=== PATIENT | female | born 1965 | race Caucasian/White ===

== ENCOUNTER → 2016-10-06 | Outpatient (CLI) | payer BC ==
[2016-10-06 07:55] LABS: CH 30.5; CHCM 33.8; HCT 44.3 % (34.0-46.0); HDW 2.66; HGB 14.6 gm/dL (11.4-16.0); MCH 29.9 pg (25.0-35.0); MCHC 32.9 g/dL (31.0-37.0); MCV 90.7 fL (80.0-100.0); RBC 4.88 m/uL (3.80-5.40); RDW 12.7 % (11.5-15.5); WBC 9.2 k/uL (3.8-10.6)
[2016-10-06 08:24] LABS: Anion Gap 10 mmol/L; Blood Urea Nitrogen 20 mg/dL (7-17); Calcium 9.1 mg/dL (8.4-10.2); Carbon Dioxide 26 mmol/L (22-30); Chloride 106 mmol/L (98-107); Glucose 105 mg/dL (74-99); Non-African American GFR(MDRD) >60 (>60 ml/min/1.73 sqM); Potassium 4.8 mmol/L (3.5-5.1); Sodium 142 mmol/L (137-145)
== END | disposition home or self-care (01) ==
LOC: LABWHC1 07:20
PROVIDERS: ATTEND Internal Medicine Clinical Cardiac Electrophysiology
DX: I48.3 Typical atrial flutter (principal)
CPT/HCPCS: 36415; 80048; 85027

== ENCOUNTER → 2016-12-07 | Outpatient (CLI) | payer BC ==
[2016-12-07 07:57] LABS: Anion Gap 10 mmol/L; Blood Urea Nitrogen 24 mg/dL (7-17); Calcium 9.3 mg/dL (8.4-10.2); Carbon Dioxide 27 mmol/L (22-30); Chloride 105 mmol/L (98-107); Glucose 101 mg/dL (74-99); Non-African American GFR(MDRD) >60 (>60 ml/min/1.73 sqM); Potassium 4.8 mmol/L (3.5-5.1); Sodium 142 mmol/L (137-145)
[2016-12-07 07:58] LABS: CH 30.7; CHCM 34.6; HCT 39.1 % (34.0-46.0); HDW 2.63; HGB 13.7 gm/dL (11.4-16.0); MCH 31.2 pg (25.0-35.0); MCHC 35.1 g/dL (31.0-37.0); Mean Platelet Volume 8.4; RDW 12.7 % (11.5-15.5); WBC 8.4 k/uL (3.8-10.6)
== END | disposition home or self-care (01) ==
LOC: LABWHC1 07:02
PROVIDERS: ATTEND Internal Medicine Clinical Cardiac Electrophysiology
DX: I10 Essential (primary) hypertension (principal); I42.0 Dilated cardiomyopathy; I48.0 Paroxysmal atrial fibrillation; I49.3 Ventricular premature depolarization
CPT/HCPCS: 36415; 80048; 85027

== ENCOUNTER 2016-12-14 05:51 | Day surgery (SDC) | payer BC ==
[2016-12-12 13:50] VITALS: BMI 41.5
[2016-12-14] MEDS ORDERED: LACTATED RINGERS 1,000 ML IV SCH (06:17)
[2016-12-14] MEDS: SODIUM CHLORIDE 0.9% 1,000 ML IV SCH ×2 (06:57→21:53)
[2016-12-14] MEDS ORDERED: ISOPROTERENOL 250 MCG/1.25 ML SYR IV ONE (07:25)
[2016-12-14] MEDS ORDERED: ePHEDrine 50 MG/ML 1 ML AMP ONE (07:25)
[2016-12-14] MEDS ORDERED: GLYCOPYRROLATE 0.2 MG/ML 2 ML VIAL ONE (07:25)
[2016-12-14] MEDS ORDERED: HEPARIN SODIUM,PORCINE 10,000 UNIT/ML 1 ML VIAL ONE (07:25)
[2016-12-14] MEDS ORDERED: HEPARIN SODIUM 1,000 UNIT/ML VIAL ONE (07:25)
[2016-12-14] MEDS ORDERED: FUROSEMIDE 10 MG/ML 2 ML VIAL ONE (07:25)
[2016-12-14] MEDS ORDERED: MIDAZOLAM 2 MG/2 ML VIAL ONE (07:25)
[2016-12-14] MEDS ORDERED: DEXAMETHASONE SOD PHOS (MDV) 100 MG/10 ML VIAL ONE (07:25)
[2016-12-14] MEDS ORDERED: ONDANSETRON 4 MG/2 ML VIAL ONE (07:25)
[2016-12-14] MEDS ORDERED: NEOSTIGMINE 1 MG/ML 10 ML VIAL ONE (07:25)
[2016-12-14] MEDS ORDERED: fentaNYL (PF) 50 MCG/ML 2 ML AMP ONE (07:25)
[2016-12-14] MEDS ORDERED: LIDOCAINE 1% INJ 10MG/ML (20 ML MDV) ONE (07:25)
[2016-12-14] MEDS ORDERED: VECURONIUM 10 MG VIAL IV ONE (07:25)
[2016-12-14] MEDS ORDERED: SUCCINYLCHOLINE CHLORIDE 100 MG/5 ML SYR IV ONE (07:25)
[2016-12-14] MEDS ORDERED: PROPOFOL 10 MG/ML 20 ML VIAL IV ONE (07:25)
[2016-12-14] MEDS ORDERED: PROTAMINE SULFATE 10 MG/ML 5 ML VIAL IV ONE (07:25)
[2016-12-14] MEDS ORDERED: ATROPINE SULFATE 0.1 MG/ML 10ML SYRINGE ONE (07:25)
[2016-12-14] MEDS ORDERED: LIDOCAINE 2% INJ 20 MG/ML SQ ONE (08:06)
[2016-12-14] MEDS ORDERED: HEPARIN SODIUM (1,000 UNIT/ML) 1,000 UNIT in SODIUM CHLORIDE 0.9% 1,000 ML IRRIGATION ONE ×2 (08:16→11:26)
[2016-12-14] MEDS ORDERED: HEPARIN SODIUM,PORCINE/D5W PMX 25,000 UNIT in DEXTROSE/WATER 1 500ML.BAG IV ONE (08:30)
[2016-12-14] MEDS ORDERED: LACTATED RINGERS 1,000 ML IV ONE (11:32)
[2016-12-14] MEDS ORDERED: ASPIRIN-ACET-CAFF 250-250-65MG 1 EACH TAB PO PRN (14:10)
[2016-12-14] MEDS ORDERED: ACETAMINOPHEN IV (For NPO) 1,000 MG in EMPTY BAG 1 BAG IVPB ONE (14:14)
--- NOTE | 2016-12-14 15:48 | PCN ---
DATE OF PROCEDURE: Viola Elizabeth is a 51-year-old female with paroxysmal atrial fibrillation with RVR who developed cardiomyopathy during atrial fibrillation. She has failed flecainide. She was brought in for atrial fibrillation ablation with pulmonary vein isolation. The patient was brought to the EP lab in a fasting state. Written informed consent was obtained prior to the procedure. General anesthesia was provided. Right and left groins were prepped and draped as per protocol. A 5 [place] femoral arterial sheath was placed for hemodynamic monitoring and sampling. Blood pressure remained stable throughout the procedure. Heparin was given and ACT was maintained above 300. At the end of the procedure heparin was reversed. A venous sheath was placed in the right femoral vein and 2 venous sheaths in the left femoral vein. Sinus cycle length 798 ms, IA interval 191 ms, QRS 127 ms, QT 461 ms. Sinus node recovery times at 600 and 500 ms were 1479 and 1648. The corresponding corrected sinus node recovery times were prolonged at a paced cycle length of 500 ms. AV node Wenckebach block from the coronary sinus was 330 ms. Atrial ERP 600/210 ms. Burst stimulation from 400 ms down to 300 ms. Isuprel was used wide open. High right atrial pacing was performed. AV Wenckebach block from the high right atrium was ( ) ms. VA Wenckebach block on Isuprel was greater than 500 ms. The AH interval was 114 ms, HV interval 41 ms. Intracardiac echocardiography was performed. The right atrial septum was identified. The left atrial appendage, left atrium and the pulmonary veins were identified and appropriately tagged. Three-D anatomic mapping was initially performed. Left-to- right transseptal catheterization was performed. The RA pressures were 18/3/8 mmHg and LA pressures 25/9/9 mmHg. A long sheath was placed in the left atrium and mapping and ablation catheters were placed in the left atrium. Three-D mapping of the pulmonary veins was performed. Antral isolation of the pulmonary veins was performed. The esophagus was right-sided and therefore had to be deflected away from the right-sided veins toward the left veins. This was performed under temperature monitoring. There was one area near the right superior pulmonary vein antrum where the temperature was reached ( ) degrees Celsius and RF was terminated. Antral isolation of the pulmonary veins on the left side was performed successfully. Three-D mapping was performed at the end of the procedure and the left veins were completely quiescent. Next the right pulmonary veins were isolated at the antral level. The esophagus was deflected. At the end of the procedure the veins were completely quiescent on voltage mapping as well as with high-voltage pacing. All catheters were then removed. Heparin was reversed at the end of the procedure. Radiographic evaluation of the esophagus was performed. There was no evidence for esophageal perforation, tear or ulceration or staining. Patient tolerated the procedure well without any acute complications. PLAN: Continue all cardiac medications, including flecainide and anticoagulation. Please note that on intracardiac echo the LV function was normal during sinus rhythm.
[2016-12-14] MEDS: ACETAMINOPHEN TAB 325 MG TAB PO PRN (17:55)
[2016-12-14] MEDS: FLECAINIDE 50 MG TAB PO SCH (21:53)
[2016-12-14] MEDS: DOCUSATE 100 MG CAP PO SCH (21:53)
[2016-12-14] MEDS: FLUoxetine HCL 20 MG CAP PO SCH (21:54)
[2016-12-14] MEDS: RIVAROXABAN 10 MG TAB PO SCH (21:54)
[2016-12-14] MEDS: HYDROcodone/APAP 5-325MG 1 EACH TAB PO PRN (21:54)
[2016-12-14] MEDS: LISINOPRIL 5 MG TAB PO SCH (21:54)
[2016-12-15] MEDS: HYDROcodone/APAP 5-325MG 1 EACH TAB PO PRN ×3 (03:05→20:20)
--- NOTE | 2016-12-15 08:07 | P.PN ---
Progress Note - Text Patient is complaining of sore throat. No pleuritic chest discomfort no dizziness lightheadedness no breathing trouble Temperature 97.5, pulse rate in the 80s, normal respirations, blood pressure 112 /58 mmHg Normal heart sounds normal S1 normal S2 no murmurs no gallops Breath sounds are normal no rhonchi no crackles Abdomen soft nontender Extremities warm no edema No hematoma over the groins right groin is tender but without hematoma Impression Paroxysmal atrial fibrillation, very symptomatic failed flecainide frequent PVCs History of cardio myopathy, improved Plan Observe on telemetry. I'm late in the hallways. She underwent an A. fib ablation procedure under general anesthesia for greater than 5 hours There was a rise in esophageal temperature by 1.1C been ablating close to the right superior pulmonary vein posteriorly I will consider CT of the chest with contrast before she is discharged All home medications will continue unchanged for now including anticoagulation
[2016-12-15] MEDS: DOCUSATE 100 MG CAP PO SCH ×2 (08:09→20:16)
[2016-12-15] MEDS: METOPROLOL SUCCINATE (ER) 100 MG TAB.ER.24H PO SCH (08:09)
[2016-12-15] MEDS: FLECAINIDE 50 MG TAB PO SCH ×2 (08:09→20:16)
[2016-12-15] MEDS: SPIRONOLACTONE 25 MG TAB PO SCH (08:09)
[2016-12-15] MEDS: SODIUM CHLORIDE 0.9% 1,000 ML IV SCH (11:20)
[2016-12-15] MEDS: ACETAMINOPHEN TAB 325 MG TAB PO PRN (15:09)
[2016-12-15] MEDS: RIVAROXABAN 10 MG TAB PO SCH (17:19)
[2016-12-15] MEDS: FLUoxetine HCL 20 MG CAP PO SCH (20:16)
[2016-12-15] MEDS: LISINOPRIL 5 MG TAB PO SCH (20:16)
[2016-12-16 03:13] LABS: Basophils % (A) 0 %; CH 30.8; CHCM 34.4; Eosinophils # (A) 0.2 k/uL (0-0.7); Eosinophils % (A) 1 %; HCT 35.3 % (34.0-46.0); HDW 2.49; HGB 12.2 gm/dL (11.4-16.0); Luc # (Auto) 0.15; Luc % (Auto) 1; Lymphocytes # (A) 1.8 k/uL (1.0-4.8); Lymphocytes % (A) 10 %; MCHC 34.4 g/dL (31.0-37.0); MCV 89.9 fL (80.0-100.0); Mean Platelet Volume 7.5; Monocytes # (A) 0.6 k/uL (0-1.0); Monocytes % (A) 4 %; Neutrophils # (A) 14.4 k/uL (1.3-7.7); Neutrophils % (A) 84 %; RBC 3.93 m/uL (3.80-5.40); RDW 12.9 % (11.5-15.5); WBC 17.1 k/uL (3.8-10.6); WBC (Perox) 18.72
[2016-12-16 03:38] LABS: Anion Gap 9 mmol/L; Blood Urea Nitrogen 18 mg/dL (7-17); Calcium 8.7 mg/dL (8.4-10.2); Carbon Dioxide 26 mmol/L (22-30); Chloride 102 mmol/L (98-107); Glucose 115 mg/dL (74-99); Magnesium 2.1 mg/dL (1.6-2.3); Non-African American GFR(MDRD) >60 (>60 ml/min/1.73 sqM); Potassium 4.3 mmol/L (3.5-5.1); Sodium 137 mmol/L (137-145)
[2016-12-16] MEDS: METOPROLOL SUCCINATE (ER) 100 MG TAB.ER.24H PO SCH (08:08)
[2016-12-16] MEDS ORDERED: FLUoxetine HCL 20 MG CAP ONE (08:08)
[2016-12-16] MEDS: SPIRONOLACTONE 25 MG TAB PO SCH (08:08)
[2016-12-16] MEDS ORDERED: FLECAINIDE 50 MG TAB ONE ×2 (08:08)
[2016-12-16] MEDS ORDERED: FLUTICASONE 50MCG/SPRAY NASAL 16GM ONE (08:08)
[2016-12-16] MEDS: FLECAINIDE 50 MG TAB PO SCH ×2 (08:08→20:52)
[2016-12-16] MEDS ORDERED: METOPROLOL SUCCINATE (ER) 100 MG TAB.ER.24H PO ONE (08:08)
[2016-12-16] MEDS ORDERED: DOCUSATE 100 MG CAP ONE ×2 (08:08)
[2016-12-16] MEDS: DOCUSATE 100 MG CAP PO SCH ×2 (08:08→20:53)
[2016-12-16] MEDS ORDERED: LISINOPRIL 5 MG TAB ONE (08:08)
[2016-12-16] MEDS ORDERED: RIVAROXABAN 10 MG TAB PO ONE (08:08)
[2016-12-16] MEDS ORDERED: SPIRONOLACTONE 25 MG TAB ONE (08:08)
[2016-12-16] MEDS ORDERED: RX INFO: IV CONTRAST WAS GIVEN 1 EACH MISC MISCELLANE PRN (08:59)
--- NOTE | 2016-12-16 11:03 | P.DS ---
Providers Attending physician: Gage Hester Primary care physician: Flavio Durant [facility] Course: patient is lying comfortably in bed. She denies any chest discomfort she does have difficulty with swallowing but she does not have any chest discomfort or pleuritic chest discomfort. She does get little dizzy when she sits up in bed no palpitations rhythm has been normal Labs are reviewed today white count is 17,000 electrolytes are normal glucose 115 neutrophil count is She is afebrile 97.5F respirations are normal blood pressure 120/66 mmHg Heart sounds S1 and S2 are normal no murmurs or gallops no rubs Breath sounds bilateral crackles at both bases Abdomen soft nontender Groins have healed well no hematoma Peripheral pulses are well palpable Impression Paroxysmal atrial fibrillation, symptomatic A. fib related cardio-myopathy PVCs Swallowing difficulty, elevated white count postprocedure after A. fib ablation Plan CT of the chest with contrast. If there are no mediastinal problems such as mediastinal air she'll be discharged home today She will continue all her medications including anticoagulation Follow-up in one week Patient Condition at Discharge: Stable Plan - Discharge Summary Discharge Medication List FLUoxetine HCL [PROzac] 20 mg PO HS 09/14/14 [History] Levalbuterol Hfa Inhaler [Xopenex Hfa Inhaler] 2 puff INHALATION QID PRN [History] Levalbuterol Nebulized [Xopenex Nebulized] 1 applic INHALATION QID PRN 09/14/14 [History] Lisinopril [Zestril] 5 mg PO HS 09/14/14 [History] Spironolactone [Aldactone] 12.5 mg PO DAILY 09/14/14 [History] Aspirin/Acetaminophen/Caffeine [Excedrin Migraine Caplet] 1 each PO DAILY PRN [History] Flecainide Acetate [Tambocor] 50 mg PO BID 08/17/16 [History] Metoprolol Succinate [Toprol XL] 100 mg PO DAILY 08/17/16 [History] Rivaroxaban [Xarelto] 25 mg PO PC-SUPPER 08/17/16 [History] Multivitamins, Thera [Multivitamin] 1 tab PO DAILY 12/12/16 [History]
--- NOTE | 2016-12-16 11:21 | CT ---
EXAMINATION TYPE: CT chest w con DATE OF EXAM: 12/16/2016 11:08 AM COMPARISON: NONE HISTORY: Atrial fibrillation and Aflutter. History of cardiac ablation performed December 14 CT DLP: 448.40 mGycm. Automated Exposure Control for Dose Reduction was Utilized. TECHNIQUE: CT scan of the thorax is performed following with IV Contrast, patient injected with 100 ml mL of Omnipaque 350. FINDINGS: LUNGS: There are tiny bilateral pleural effusions inferiorly. There is associated compressive atelect asis and/or consolidation posteriorly in both lung bases. There is additional linear atelectasis cent rally. No pneumothorax is seen bilaterally. Upper lungs are clear The tracheobronchial tree is patent . MEDIASTINUM: There are no greater than 1 cm hilar or mediastinal lymph nodes. There is tiny pericardi al effusion seen posteriorly near axial image 38 for reference. There is cardiomegaly present. Some m ediastinal fluid near level of ascending aorta is suggestive of hematoma measuring roughly 3.4 x 2.2 cm at this level. OTHER: Mild multilevel spurring in thoracic spine is present. There are dependent gallstones in gallb ladder partially imaged. IMPRESSION: Some high dense fluid at level of ascending aorta and the mediastinum is nonspecific, hem atoma at this level needs to BE considered as possible etiology.
--- NOTE | 2016-12-16 13:03 | PN ---
INTERVAL HISTORY: The patient is sitting up in chair. Denying chest pain, shortness breath, nausea, vomiting, abdominal pain, dizziness, lightheadedness, or blurry vision. Feels some improvement since admission but not quite back at her baseline. PHYSICAL EXAMINATION: VITAL SIGNS: 97.9, 94, 18, 125/69, saturation is 98% on room air. LUNGS: Diminished bilaterally. HEART: Normal S1, S2. ABDOMEN: Soft, no tenderness, positive bowel sounds in all 4 quadrants. SKIN: No new rash. PSYCH: Alert and oriented x3. IMAGING AND LABS: Hemoglobin is 8.6, stable from prior finding. Stable CBC otherwise. Creatinine is 3.5, which is baseline for the patient, 2.9. Glucose fluctuating between 109 and 180. ASSESSMENT AND PLAN: 1. Acute kidney injury on chronic kidney disease. The patient is still producing generous amount of urine. Currently on Lasix 40 mg twice daily. Discussed with Nephrology. At this point we will continue sodium bicarb and repeat her blood work in the morning. 2. Acute combined systolic and diastolic heart failure. Will continue cardioprotective medication. We will continue monitoring closely. Cardiology is following up on the patient and would like to consider cardiac catheterization but kidney function is elevated and the patient is not a candidate at this point and may benefit from that on outpatient basis after optimizing her kidney function and discussion with the Nephrology. 3. Coronary artery disease. We will continue cardioprotective medication as above. 4. Anemia, stable and we will continue periodic monitoring. 5. Obesity, stable. 6. History of osteomyelitis. Infectious disease evaluated the patient. 7. Debility. Will have PT, OT evaluate the patient. 8. Prognosis is guarded.
--- NOTE | 2016-12-16 13:23 | P.PN ---
Progress Note - Text Reviewed CT films with Dr. Alcantara The fluid collection/soft tissue density that is described is anterior to the ascending aorta which is very distant from the left atrium as well as the esophagus The patient underwent a left atrial ablation and esophageal deflection, mechanically There is no hematoma or air in the mediastinum This could represent a pericardial extension or recess Suggest We will keep her in the hospital for another day, check her CBC tomorrow, incentive spirometer since she has bilateral basilar atelectasis and consider repeating the CT, noncontrast in a week or 2 She has had an MRI done at the [facility] and I will call them to see if this was present at that time
[2016-12-16] MEDS: RIVAROXABAN 10 MG TAB PO SCH (17:16)
[2016-12-16] MEDS ORDERED: diphenhydrAMINE 50 MG/ML 1 ML VIAL IVP PRN (18:06)
[2016-12-16] MEDS ORDERED: ALBUTEROL NEBULIZED 2.5 MG/3 ML INHALATION PRN (18:07)
[2016-12-16] MEDS: FLUTICASONE 50MCG/SPRAY NASAL 16GM EA NOSTRIL SCH (18:27)
[2016-12-16] MEDS: SODIUM CHLORIDE 0.9% 1,000 ML IV SCH (20:03)
[2016-12-16] MEDS: FLUoxetine HCL 20 MG CAP PO SCH (20:52)
[2016-12-16] MEDS: LISINOPRIL 5 MG TAB PO SCH (20:53)
[2016-12-17 06:57] LABS: Basophils % (A) 0 %; CH 30.4; CHCM 33.5; Eosinophils # (A) 0.2 k/uL (0-0.7); Eosinophils % (A) 1 %; HCT 36.6 % (34.0-46.0); HDW 2.47; HGB 12.2 gm/dL (11.4-16.0); Luc % (Auto) 2; Lymphocytes # (A) 3.6 k/uL (1.0-4.8); Lymphocytes % (A) 30 %; MCH 30.5 pg (25.0-35.0); MCHC 33.4 g/dL (31.0-37.0); MCV 91.3 fL (80.0-100.0); Mean Platelet Volume 7.5; Monocytes # (A) 0.7 k/uL (0-1.0); Monocytes % (A) 6 %; Neutrophils # (A) 7.3 k/uL (1.3-7.7); Neutrophils % (A) 61 %; RBC 4.01 m/uL (3.80-5.40); WBC 12.1 k/uL (3.8-10.6); WBC (Perox) 12.97
[2016-12-17] MEDS: ACETAMINOPHEN TAB 325 MG TAB PO PRN (07:34)
[2016-12-17 08:27] VITALS: BP 124/70; PULSE 63; RESP 16; TEMP 97.8
[2016-12-17] MEDS: DOCUSATE 100 MG CAP PO SCH (08:28)
[2016-12-17] MEDS: METOPROLOL SUCCINATE (ER) 100 MG TAB.ER.24H PO SCH (08:28)
[2016-12-17] MEDS: FLUTICASONE 50MCG/SPRAY NASAL 16GM EA NOSTRIL SCH (08:28)
[2016-12-17] MEDS: FLECAINIDE 50 MG TAB PO SCH (08:28)
[2016-12-17] MEDS ORDERED: LORATADINE 10 MG TAB PO SCH (09:00)
--- NOTE | 2016-12-17 10:17 | P.DS ---
Providers Attending physician: Gage Hester [facility] Course: Patient is doing well. She has no chest discomfort no undue shortness of breath no dizziness lightheadedness or palpitations. Yesterday some hernandez were brought to the room by her neighbor and she developed a nasal ALLERGIC reaction. She is ALLERGIC to pollen. She is not improved and has no problems Labs are reviewed white count is down to 12.1 thousand hemoglobin is stable at 12.2 Vitals are stable she's afebrile 97.8F, pulse rate in the 60s, normal respirations, blood pressure 124/70 mmHg Breath sounds are normal no rhonchi no crackles Heart sounds are normal normal S1 normal S2 Abdomen soft nontender Groins have healed well bilaterally no hematoma Extremities are warm no edema Impression Paroxysmal atrial fibrillation with RVR with associated cardiomyopathy Improvement in LV function with sinus rhythm documented by intracardiac echo PVCs status post ablation in the past Continues to have PVCs of a different morphology The computed tomography scan yesterday showed a soft tissue density anterior to the ascending aorta. I spoke to the radiologist and while his initial opinion was a hematoma, it is more likely to be an incidental finding with probably a pericardial reflection/pouch with some fluid collection. This density is anterior and superior to the ascending aorta and quite remote from the area with the performed the ablations. I will review her MRI report and call the radiologist regarding the examination of the MRI slices for comparison Hold off on any CT imaging for now Follow-up within a week Discussed with patient and her Patient Condition at Discharge: Stable Plan - Discharge Summary Discharge Medication List FLUoxetine HCL [PROzac] 20 mg PO HS 09/14/14 [History] Levalbuterol Hfa Inhaler [Xopenex Hfa Inhaler] 2 puff INHALATION QID PRN [History] Levalbuterol Nebulized [Xopenex Nebulized] 1 applic INHALATION QID PRN 09/14/14 [History] Lisinopril [Zestril] 5 mg PO HS 09/14/14 [History] Spironolactone [Aldactone] 12.5 mg PO DAILY 09/14/14 [History] Aspirin/Acetaminophen/Caffeine [Excedrin Migraine Caplet] 1 each PO DAILY PRN [History] Flecainide Acetate [Tambocor] 50 mg PO BID 08/17/16 [History] Metoprolol Succinate [Toprol XL] 100 mg PO DAILY 08/17/16 [History] Rivaroxaban [Xarelto] 25 mg PO PC-SUPPER 08/17/16 [History] Multivitamins, Thera [Multivitamin] 1 tab PO DAILY 12/12/16 [History] Fluticasone Nasal [place] [Flonase Nasal [place]] 1 spray EA NOSTRIL DAILY 12/16/16 [History] Follow up Appointment(s)/Referral(s): Gage Hester MD [STAFF PHYSICIAN] - 12/25/16 3:00 pm Patient Instructions/Handouts: Cardiac Ablation (DC)
== END 2016-12-17 10:36 | disposition home or self-care (01) ==
LOC: CATHEP 05:51 → 6SEL 17:57 → CATHEP 12-17 10:36
PROVIDERS: ATTEND Internal Medicine Clinical Cardiac Electrophysiology
DX: I48.0 Paroxysmal atrial fibrillation (principal); I42.9 Cardiomyopathy, unspecified; I49.3 Ventricular premature depolarization; D72.829 Elevated white blood cell count, unspecified; J98.59 Other diseases of mediastinum, not elsewhere classified; I11.0 Hypertensive heart disease with heart failure; I50.9 Heart failure, unspecified; I49.5 Sick sinus syndrome; Z79.899 Other long term (current) drug therapy; Z79.1 Long term (current) use of non-steroidal anti-inflammatories (NSAID); Z88.1 Allergy status to other antibiotic agents
CPT/HCPCS: 85347; 93623; 93662; 93613; 93656; 80048; 83735; 85025 ×2; C1894 ×2; C1769 ×4; C1730; C1893; C1759; C1732; J2001 ×2; J2250; J2720; J1644 ×3; J1940; J2710; J2405; J0461; J3010; J1100; J0131; J0330; J2704

== ENCOUNTER → 2017-07-03 | Outpatient (CLI) | payer BC ==
--- NOTE | 2017-07-03 08:56 | CT ---
EXAMINATION TYPE: CT chest w con DATE OF EXAM: 07/03/2017 COMPARISON: CT chest December 16, 2016. HISTORY: abn space associated with ascending aorta/anterior mediastinum per order. Prior abnormal CT. CT DLP: 797.0 mGycm. Automated Exposure Control for Dose Reduction was Utilized. TECHNIQUE: CT scan of the thorax is performed following with IV Contrast, patient injected with 100 mL of Omnipaque 300. FINDINGS: LUNGS: The lungs are grossly clear on current study, there is no concerning noncalcified parenchymal mass or nodule identified. There is no pleural effusion or pneumothorax seen. The tracheobronchial tree is patent. There are persistent calcified right mid lung subcentimeter nodules or granulomas. MEDIASTINUM: There are no greater than 1 cm noncalcified hilar or mediastinal lymph nodes. There is redemonstration of calcified right hilar subcentimeter lymph nodes. There is stable tiny pericardial effusion. There is stable mild cardiomegaly. There is coronary artery calcification which is noted ma rker for coronary artery disease. Focal fluid anterior to aortic root on prior study now is nearly co mpletely resolved. There is new soft tissue density in the anterior superior mediastinum suspicious f or thymic rebound. Small pericardial recess fluid remains present seen best on coronal image 34. OTHER: Dependent calcified gallstones in gallbladder are redemonstrated. Mild multilevel spurring in thoracic spine is again seen. IMPRESSION: Interval resolution of high dense paraaortic fluid collection possible hematoma. Some new thymic rebound is now felt present without obvious suspicious thymic mass.
== END | disposition home or self-care (01) ==
LOC: RADCTMAIN 07:03
PROVIDERS: ATTEND Internal Medicine Clinical Cardiac Electrophysiology
DX: R93.1 Abnormal findings on diagnostic imaging of heart and coronary circulation (principal)
CPT/HCPCS: 71260; Q9967

== ENCOUNTER → 2018-03-13 | Outpatient (CLI) | payer BC ==
--- NOTE | 2018-03-13 07:40 | MR ---
EXAMINATION TYPE: MR knee RT wo con DATE OF EXAM: 03/13/2018 COMPARISON: Outside right knee x-ray February 27, 2018. HISTORY: Right knee pain per order. Pain and swelling for 2 months per patient. TECHNIQUE: Multiplanar, multisequence images of the knee is performed without IV contrast. FINDINGS: MEDIAL MENISCUS: Anterior horn is intact without tear. There is complex full-thickness tear posterior horn of medial meniscus with prominent horizontal but additional oblique component extending to josh cular surface sagittal image 8. LATERAL MENISCUS: Anterior and posterior horns are intact without tear. CRUCIATE LIGAMENTS: The anterior and posterior cruciate ligaments are intact. Increased signal throug hout anterior cruciate ligament is noted. COLLATERAL LIGAMENTS: The medial collateral ligament and lateral collateral ligament complex are inta ct and unremarkable. EXTENSOR MECHANISM: Visualized quadriceps and patellar tendons are intact. EFFUSION: There is small to moderate-sized suprapatellar joint effusion. POPLITEAL CYST: There is small popliteal/renee cyst measuring 3.0 cm long axis sagittal image 12. TRICOMPARTMENT SPACES: There is moderate to advanced joint space loss particularly inferiorly in the patellofemoral compartment with mild spurring. There is more mild to moderate joint space loss and sp urring in the lateral and medial tibiofemoral compartments. CARTILAGE: There is full-thickness chondromalacia patella along the posterior patellar pole. BONE MARROW SIGNAL: There are areas of heterogeneous increased T2 signal along the posterior patellar pole at areas of full-thickness cartilaginous loss.. OTHER: There is marked fluid in the superficial infrapatellar fat. IMPRESSION: 1. Complex full-thickness tear posterior horn of medial meniscus. 2. Tricompartment degenerative changes with moderate to advanced findings patellofemoral compartment, there is high-grade chondromalacia patella noted. 3. Moderate to severe superficial infrapatellar bursitis. 4. Small moderate size suprapatellar joint effusion. 5. Small popliteal cyst. 6. Myxoid degeneration ACL.
== END ==
LOC: RADMRIMAIN 06:46
PROVIDERS: ATTEND Orthopaedic Surgery
DX: S83.241A Other tear of medial meniscus, current injury, right knee, initial encounter (principal); X58.XXXA Exposure to other specified factors, initial encounter; M22.41 Chondromalacia patellae, right knee; M70.51 Other bursitis of knee, right knee; M25.461 Effusion, right knee; M71.21 Synovial cyst of popliteal space [Baker], right knee; M23.8X1 Other internal derangements of right knee

== ENCOUNTER 2019-06-23 19:06 | Emergency (ER) | payer BC ==
[2019-06-23 19:38] LABS: Appearance,Urine Bloody (Clear); Color,Urine Light Red; Mucus,Urine Few /hpf; RBC,Urine >182 /hpf (0-5); Squamous Epithelial Cell,Urine 8 /hpf (0-4); WBC,Urine >182 /hpf (0-5)
[2019-06-23] MEDS ORDERED: PHENAZOPYRIDINE 200 MG TAB PO STA (20:04)
[2019-06-23] MEDS ORDERED: IBUPROFEN 600 MG TAB PO STA (20:04)
[2019-06-23] MEDS ORDERED: cefTRIAXone 1,000 MG VIAL (IM USE) IM STA ×2 (20:04)
[2019-06-23] MEDS ORDERED: ACETAMINOPHEN TAB 500 MG TAB PO STA (20:09)
--- NOTE | 2019-06-23 20:09 | ED ---
General Adult HPI - General Chief complaint: Urogenital Stated complaint: blood & clots in urine Time Seen by Provider: 06/23/19 19:10 Source: patient, RN notes reviewed Mode of arrival: ambulatory Limitations: no limitations - History of Present Illness Initial comments: This is a 53-year-old female presents emergency Department complaining of dysuria hematuria and suprapubic pressure. Patient also complains of urgency. Patient denies any fever. Patient denies any chills per patient denies nausea vomiting diarrhea. Patient denies any vaginal bleeding. Patient denies any back pain. Patient states a urinary tract infections in the past but not to this degree. - Related Data Home Medications Medication Instructions Recorded Confirmed FLUoxetine HCL [PROzac] 20 mg PO HS 09/14/14 08/12/18 Levalbuterol Hfa Inhaler [Xopenex 2 puff INHALATION QID PRN 09/14/14 08/12/18 Hfa Inhaler] Levalbuterol Nebulized [Xopenex 1 applic INHALATION QID PRN 09/14/14 08/12/18 Nebulized] Lisinopril [Zestril] 5 mg PO HS 09/14/14 08/12/18 Spironolactone [Aldactone] 12.5 mg PO DAILY 09/14/14 08/12/18 Aspirin/Acetaminophen/Caffeine 1 each PO DAILY PRN 08/17/16 08/12/18 [Excedrin Migraine Caplet] Flecainide Acetate [Tambocor] 50 mg PO BID 08/17/16 08/12/18 Metoprolol Succinate [Toprol XL] 100 mg PO DAILY 08/17/16 08/12/18 Multivitamins, Thera [Multivitamin] 1 tab PO DAILY 12/12/16 08/12/18 Fluticasone Nasal [place] [Flonase 1 spray EA NOSTRIL DAILY 12/16/16 08/12/18 Nasal [place]] Cetirizine HCl [Zyrtec] 10 mg PO DAILY 08/12/18 08/12/18 Previous Rx's Medication Instructions Recorded HYDROcodone/APAP 7.5-325MG [[place] 1 - 2 each PO Q6HR PRN #20 tab 08/14/18 7.5-325] Phenazopyridine [Pyridium] 200 mg PO TID #9 tablet 06/23/19 Sulfamethox-Tmp 800-160Mg [Bactrim 1 each PO Q12HR #14 tab 06/23/19 DS 800-160 mg] Allergies Allergy/AdvReac Type Severity Reaction Status Date / Time egg Allergy Intermediate Swelling Verified 06/23/19 19:09 erythromycin base Allergy Intermediate Rash/Hives Verified 06/23/19 19:09 adhesive tape Allergy Rash/Hives Verified 06/23/19 19:09 LITTLE Allergy Cough Uncoded 06/23/19 19:09 Cardiac Electrodes AdvReac Unknown Rash/Hives Uncoded 06/23/19 19:09 Review of Systems ROS Statement: Those systems with pertinent positive or pertinent negative responses have been documented in the HPI. ROS Other: All systems not noted in ROS Statement are negative. Past Medical History Past Medical History: Atrial Fibrillation, Asthma, Osteoarthritis (OA) Additional Past Medical History / Comment(s): recent sinus infection and URI tx with antibiotics and steroid injection completed. hx PVC's History of Any Multi-Drug Resistant Organisms: None Reported Past Surgical History: Adenoidectomy, Cardiac Ablation, EPS, Hernia Repair, Tonsillectomy Additional Past Surgical History / Comment(s): Cardiac Ablation x3 for PVC's, 1 for Afib, Cardioversion Past Anesthesia/Blood Transfusion Reactions: No Reported Reaction Past Psychological History: No Psychological Hx Reported Smoking Status: Never smoker Past Alcohol Use History: Occasional Past Drug Use History: None Reported - Past Family History Mother Family Medical History: Cancer Father Family Medical History: AFIB, Coronary Artery Disease (CAD) General Exam - General Exam Comments Initial Comments: GENERAL: Patient is well-developed and well-nourished. Patient is nontoxic and well- hydrated and is in mild distress. ENT: Neck is soft and supple. No significant lymphadenopathy is noted. Oropharynx is clear. Moist mucous membranes. Neck has full range of motion without eliciting any pain. EYES: The sclera were anicteric and conjunctiva were pink and moist. Extraocular movements were intact and pupils were equal round and reactive to light. Eyelids were unremarkable. ABDOMEN: Soft and nontender with normal bowel sounds. SKIN: Skin is clear with no lesions or rashes and otherwise unremarkable. NEUROLOGIC: Patient is alert and oriented x3. Cranial nerves II through XII are grossly intact. Motor and sensory are also intact. Normal speech, volume and content. Symmetrical smile. MUSCULOSKELETAL: Normal extremities with adequate strength and full range of motion. No CVA tenderness LYMPHATICS: No significant lymphadenopathy is noted PSYCHIATRIC: Normal psychiatric evaluation. Limitations: no limitations Course Vital Signs 06/23/19 19:07 Temperature 98.6 F Pulse Rate 73 Respiratory 18 Rate Blood Pressure 146/84 O2 Sat by Pulse 100 Oximetry Medical Decision Making - Medical Decision Making I gave the patient 2 g of Rocephin IM I reminded and Motrin and Tylenol. Patient a bladder scan done that showed less than 100 mL of urine - Lab Data Lab Results 06/23/19 Range/Units 19:07 Urine Color Light Red Urine Appearance Bloody H (Clear) Urine RBC >182 H (0-5) /hpf Urine WBC >182 H (0-5) /hpf Ur Squamous Epith Cells 8 H (0-4) /hpf Urine Mucus Few H (None) /hpf Disposition Clinical Impression: Hemorrhagic cystitis Disposition: HOME SELF-CARE Instructions (If sedation given, give patient instructions): Urinary Tract Infection in Women (ED) Prescriptions: Sulfamethox-Tmp 800-160Mg [Bactrim DS 800-160 mg] 1 each PO Q12HR #14 tab Phenazopyridine [Pyridium] 200 mg PO TID #9 tablet Is patient prescribed a controlled substance at d/c from ED?: No Referrals: Flavio Durant MD [Primary Care Provider] - 1-2 days Time of Disposition: 20:37
[2019-06-23 20:47] VITALS: BP 137/64; PULSE 64; RESP 16
[2019-06-23 20:59] VITALS: TEMP 98
== END 2019-06-23 20:51 | disposition home or self-care (01) ==
LOC: EC 19:06
DX: N30.91 Cystitis, unspecified with hematuria (principal); I48.91 Unspecified atrial fibrillation; J45.909 Unspecified asthma, uncomplicated; Z79.51 Long term (current) use of inhaled steroids; Z79.899 Other long term (current) drug therapy; Z91.012 Allergy to eggs; Z88.1 Allergy status to other antibiotic agents; Z91.048 Other nonmedicinal substance allergy status; Z91.09 Other allergy status, other than to drugs and biological substances; Z98.890 Other specified postprocedural states
CPT/HCPCS: 81001; 87086; 99283; 96372 ×2; J0696; 87077; 87186

== ENCOUNTER → 2019-07-08 | Outpatient (CLI) | payer BC ==
--- NOTE | 2019-07-08 15:05 | XR ---
KUB HISTORY: Abdomen pain Frontal KUB submitted on 2 images No prior 2 calcifications in the right upper quadrant may represent gallstones. There is no evident bowel obst ruction or pneumoperitoneum. Several 2 to 3 mm calcifications in the pelvis may represent phleboliths . Bone mineralization is normal, degenerative disc changes are present in the lumbar spine. Bowel gas may obscure detail within the kidneys. IMPRESSION: Probable cholelithiasis. Indeterminate pelvic calcifications.
== END | disposition home or self-care (01) ==
LOC: RADXRMAIN 12:58
PROVIDERS: ATTEND Internal Medicine
DX: R10.9 Unspecified abdominal pain (principal)
CPT/HCPCS: 74018

== ENCOUNTER → 2019-07-25 | Outpatient (CLI) | payer BC ==
--- NOTE | 2019-07-25 08:12 | US ---
EXAMINATION TYPE: US abdomen complete DATE OF EXAM: 07/25/2019 COMPARISON: CT chest July 03, 2017 CLINICAL HISTORY: K56.3 gall stones. UTI, flank pain EXAM MEASUREMENTS: Liver Length: 14.4 cm Gallbladder Wall: 0.3 cm CBD: 0.3 cm Spleen: 9.4 cm Right Kidney: 11.8 x 4.3 x 5.0 cm Left Kidney: 10.0 x 4.9 x 4.4 cm Pancreas: Tail obscured by overlying bowel gas Liver: appears wnl Gallbladder: 2 stones noted Evidence for sonographic Teran's sign: no CBD: appears wnl Spleen: appears wnl Right Kidney: no evidence of hydronephrosis or mass Left Kidney: no evidence of hydronephrosis or mass Upper IVC: wnl Abd Aorta: bifurcation obscured, visualized portions appear wnl The visualized liver is homogenous. Subcentimeter hypodense lesion in the perihepatic dome axial imag e 52 not clearly seen on ultrasound. The intrahepatic portion of the IVC and visualized abdominal aor ta are within normal limits. There is redemonstration of 2 shadowing mobile gallstones. No surroundi ng fluid is present. Gallbladder wall thickness is 3 mm upper limits of normal. Sonographic Teran si gn negative. Common bile duct is unremarkable. The visualized portions of the pancreas are homogenou s. The spleen is unremarkable. Kidneys are symmetric and free of hydronephrosis. No renal lesions are seen on images saved. IMPRESSION: There are 2 shadowing gallstones redemonstrated without convincing secondary ultrasound e vidence for acute cholecystitis.
== END | disposition home or self-care (01) ==
LOC: RADUSWWP 07:04
PROVIDERS: ATTEND Internal Medicine
DX: K80.20 Calculus of gallbladder without cholecystitis without obstruction (principal)
CPT/HCPCS: 76700

== ENCOUNTER → 2019-08-22 | Outpatient (CLI) | payer BC ==
[2019-08-22 07:50] LABS: Basophils # (A) 0.1 k/uL (0-0.2); Basophils % (A) 1 %; Eosinophils # (A) 0.3 k/uL (0-0.7); Eosinophils % (A) 2 %; HCT 40.9 % (34.0-46.0); HGB 13.7 gm/dL (11.4-16.0); Lymphocytes # (A) 2.5 k/uL (1.0-4.8); Lymphocytes % (A) 22 %; MCH 30.2 pg (25.0-35.0); MCHC 33.6 g/dL (31.0-37.0); MCV 89.9 fL (80.0-100.0); Mean Platelet Volume 6.5; Monocytes # (A) 0.6 k/uL (0-1.0); Monocytes % (A) 5 %; Neutrophils # (A) 7.6 k/uL (1.3-7.7); Neutrophils % (A) 68 %; Platelet Count 298 k/uL (150-450); RBC 4.55 m/uL (3.80-5.40); RDW 12.4 % (11.5-15.5); WBC 11.2 k/uL (3.8-10.6)
[2019-08-22 08:02] LABS: Albumin 4.1 g/dL (3.5-5.0); Calcium 9.3 mg/dL (8.4-10.2); Magnesium 2.2 mg/dL (1.6-2.3); Potassium 4.5 mmol/L (3.5-5.1); Total Protein 7.4 g/dL (6.3-8.2)
[2019-08-22 08:18] LABS: T4, Free (Free Thyroxine) 0.95 ng/dL (0.78-2.19)
[2019-08-22 14:43] LABS: Hemoglobin A1C 5.8 % (4.0-6.0)
--- NOTE | 2019-08-26 08:32 | MM ---
Reason for exam: screening (asymptomatic). Last mammogram was performed 5 years ago. History: Patient is postmenopausal. Physical Findings: A clinical breast exam by your physician is recommended on an annual basis and results should be correlated with mammographic findings. MG 3D Screening Mammo W/Cad Bilateral CC and MLO view(s) were taken. Prior study comparison: August 31, 2014, left breast MG work up mamm w CAD LT. August 20, 2014, bilateral MG screening mammo w CAD. The breast tissue is heterogeneously dense. This may lower the sensitivity of mammography. No significant changes when compared with prior studies. ASSESSMENT: Benign, BI-RAD 2 RECOMMENDATION: Routine screening mammogram of both breasts in 1 year.
== END | disposition home or self-care (01) ==
LOC: RADMAMWWP 06:52
PROVIDERS: ATTEND Internal Medicine
DX: Z12.31 Encounter for screening mammogram for malignant neoplasm of breast (principal); I10 Essential (primary) hypertension; E78.2 Mixed hyperlipidemia
CPT/HCPCS: 77063; 77067; 80053; 80061; 83036; 83735; 84439; 84443; 85025

== ENCOUNTER 2024-10-20 05:36 | Day surgery (SDC) | payer BC ==
[2024-10-20] MEDS: IV FLUID CONTINUATION 1,000 ML IV ONE (06:35)
[2024-10-20] MEDS: SODIUM CHLORIDE 0.9% 1,000 ML IV SCH ×3 (06:35→17:24)
[2024-10-20 07:09] LABS: Basophils % (A) 0 %; Eosinophils # (A) 0.2 k/uL (0-0.7); Eosinophils % (A) 2 %; HCT 38.7 % (34.0-46.0); HGB 13.2 gm/dL (11.4-16.0); Lymphocytes # (A) 2.4 k/uL (1.0-4.8); Lymphocytes % (A) 26 %; MCH 29.9 pg (25.0-35.0); MCHC 34.1 g/dL (31.0-37.0); MCV 87.8 fL (80.0-100.0); Mean Platelet Volume 7.6; Monocytes # (A) 0.6 k/uL (0-1.0); Monocytes % (A) 7 %; Neutrophils # (A) 5.8 k/uL (1.3-7.7); Neutrophils % (A) 63 %; Platelet Count 251 k/uL (150-450); RBC 4.41 m/uL (3.80-5.40); RDW 12.5 % (11.5-15.5); WBC 9.2 k/uL (3.8-10.6)
[2024-10-20 07:24] LABS: ALT 17 U/L (4-34); African American GFR (CKD) >90 (>60 ml/min/1.73 sqM); Albumin 3.9 g/dL (3.5-5.0); Anion Gap 8 mmol/L; Blood Urea Nitrogen 23 mg/dL (7-17); Calcium 8.8 mg/dL (8.4-10.2); Carbon Dioxide 23 mmol/L (22-30); Chloride 104 mmol/L (98-107); Glucose 100 mg/dL (74-99); Non-African American GFR(CKD) 79 (>60 ml/min/1.73 sqM); Sodium 135 mmol/L (137-145); Total Bilirubin 1.1 mg/dL (0.2-1.3); Total Protein 6.8 g/dL (6.3-8.2)
[2024-10-20] MEDS ORDERED: fentaNYL (PF) 50 MCG/ML 2 ML AMP ONE (07:50)
[2024-10-20] MEDS ORDERED: PHENYLEPHRINE 10 MG/ML VIAL ONE (07:50)
[2024-10-20] MEDS ORDERED: MIDAZOLAM 2 MG/2 ML VIAL ONE (07:50)
[2024-10-20] MEDS ORDERED: HEPARIN SODIUM,PORCINE 10,000 UNIT/ML 1 ML VIAL ONE (07:50)
[2024-10-20] MEDS ORDERED: ISOPROTERENOL 250 MCG/1.25 ML SYR IV ONE (07:50)
[2024-10-20] MEDS ORDERED: PROPOFOL 10 MG/ML 20 ML VIAL IV ONE (07:50)
[2024-10-20] MEDS ORDERED: SUCCINYLCHOLINE CHLORIDE 200 MG/10 ML VIAL IV ONE (07:50)
[2024-10-20] MEDS ORDERED: ePHEDrine 50 MG/ML 1 ML VIAL ONE (07:50)
[2024-10-20] MEDS ORDERED: PHENYLEPHRINE-0.9% NACL SYG 1,000 MCG/10 ML SYRINGE ONE (07:50)
[2024-10-20] MEDS ORDERED: HEPARIN SODIUM,PORCINE 5,000 UNIT/ML 1 ML VIAL ONE (07:50)
[2024-10-20] MEDS ORDERED: diphenhydrAMINE 50 MG/ML 1 ML VIAL ONE (07:50)
[2024-10-20] MEDS ORDERED: LIDOCAINE 1% INJ 10MG/ML (20 ML MDV) ONE (07:50)
[2024-10-20] MEDS ORDERED: ONDANSETRON 4 MG/2 ML VIAL ONE (07:50)
[2024-10-20 07:55] LABS: AST 25 U/L (14-36); Alkaline Phosphatase 62 U/L (38-126); Potassium 4.4 mmol/L (3.5-5.1)
[2024-10-20] MEDS: LIDOCAINE 1% INJ 10MG/ML (20 ML MDV) SQ ONE (08:32)
[2024-10-20] MEDS: HEPARIN SODIUM,PORCINE 10,000 UNIT in SODIUM CHLORIDE 0.9% 1,000 ML IRRIGATION ONE (08:38)
[2024-10-20] MEDS: HEPARIN SOD,PORK IN 0.45% NACL 25,000 UNIT in 0.45% NACL 1 250ML.BAG IV ONE (08:38)
[2024-10-20] MEDS: IOPAMIDOL-370 100ML BTL INJ ONE (10:25)
[2024-10-20] MEDS ORDERED: ASPIRIN-ACET-CAFF 250-250-65MG 1 EACH TAB PO PRN (11:12)
--- NOTE | 2024-10-20 11:29 | P.HPCAR ---
History of Present Illness This is Dr. Hester dictating an H/P on this patient The patient was interviewed and examined IMPRESSION / ASSESSMENT: Paroxysmal atrial fibrillation, sustained, symptomatic, associated palpitations and dizziness Failed flecainide Prior ablation almost 7 years back Increased BMI Sudden long pause of greater than 7 seconds during the daytime in the wakeful state PLAN: Redo A-fib ablation with linear ablation and assessment of pulmonary veins Heparin dose calculated Continue Eliquis but reduce the dose of flecainide to 50 mg twice daily and metoprolol XL 25 mg p.o. daily post ablation Implantation of loop monitor during this admission to monitor for any sudden bradycardia Gradually taper off beta-blockers and flecainide HPI Patient had a sustained episode of atrial fibrillation for the very first time In addition we have also documented a long sinus pause of 7 seconds during the daytime She was brought in for an A-fib ablation, redo following which her AV leander blocking drugs and antiarrhythmic drugs would be reduced since she had the sinus arrest episode She denies any fever chills She had a presyncopal spell in association with this pause but none thereafter ROS: No fever chills or rigors, no cough, phlegm or expectoration, no nausea, vomiting or diarrhea, no hematuria, dysuria, no musculoskeletal complaints, no strokes or seizures, no skin lesions. 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 hx PVC's History of Any Multi-Drug Resistant Organisms: None Reported Past Surgical History: Adenoidectomy, Cardiac Ablation, EPS, Hernia Repair, Tonsillectomy Additional Past Surgical History / Comment(s): Cardiac Ablation x3 for PVC's, 1 for Afib, Cardioversion Past Anesthesia/Blood Transfusion Reactions: No Reported Reaction Smoking Status: Never smoker - Past Family History Mother Family Medical History: Cancer Father Family Medical History: AFIB, Coronary Artery Disease (CAD) Physical Examination Vital Signs Temp Pulse Resp BP Pulse Ox 10/20/24 11:15 81 15 141/65 100 10/20/24 11:00 97.3 F L 81 14 144/65 98 10/20/24 06:50 97.8 F 55 L 16 126/58 99 Intake and Output 10/19/24 10/20/24 10/20/24 22:59 06:59 14:59 Intake Total 400 235 Balance 400 235 Intake: IV 400 235 Other: # Voids 1 Weight 105.3 kg Results 10/20/24 06:37 10/20/24 06:37 Cardiac Enzymes 10/20/24 Range/Units 06:37 AST 25 (14-36) U/L CBC 10/20/24 Range/Units 06:37 WBC 9.2 (3.8-10.6) k/uL RBC 4.41 (3.80-5.40) m/uL Hgb 13.2 (11.4-16.0) gm/dL Hct 38.7 (34.0-46.0) % Plt Count 251 (150-450) k/uL Comprehensive Metabolic Panel 10/20/24 Range/Units 06:37 Sodium 135 L (137-145) mmol/L Potassium 4.4 (3.5-5.1) mmol/L Chloride 104 (98-107) mmol/L Carbon Dioxide 23 (22-30) mmol/L BUN 23 H (7-17) mg/dL Creatinine 0.82 (0.52-1.04) mg/dL Glucose 100 H (74-99) mg/dL Calcium 8.8 (8.4-10.2) mg/dL AST 25 (14-36) U/L ALT 17 (4-34) U/L Alkaline Phosphatase 62 (38-126) U/L Total Protein 6.8 (6.3-8.2) g/dL Albumin 3.9 (3.5-5.0) g/dL Current Medications Generic Name Dose Route Start Last Admin Trade Name Freq PRN Reason Stop Dose Admin Acetaminophen 650 mg 10/20/24 11:08 Acetaminophen Tab 325 Mg Tab PO 11/19/24 11:07 Q6HR PRN Mild Pain (Scale 1 to 3) Acetaminophen/Aspirin/Caffeine 1 each 10/20/24 11:12 [id number] [id number] 1 Each Tab PO 11/19/24 11:11 DAILY PRN Headache Apixaban 5 mg 10/20/24 21:00 Apixaban 5 Mg Tab PO 11/19/24 20:59 BID [place] Protocol Fluoxetine HCl 20 mg 10/20/24 21:00 Fluoxetine Hcl 20 Mg Cap PO 11/19/24 20:59 HS [place] Cefazolin Sodium 2 gm/ Sodium 50 mls @ 100 mls/hr 10/20/24 07:00 Chloride IVPB 10/21/24 06:59 ONCE PRN Pre-Op Sodium Chloride 1,000 mls @ 20 mls/hr 10/20/24 06:04 Saline 0.9% IV 11/19/24 06:03 .Q24H [place] Acetaminophen 1,000 mg/ IV 100 mls @ 400 mls/hr 10/20/24 11:45 Solution IVPB 10/20/24 11:59 ONCE ONE Lisinopril 5 mg 10/20/24 21:00 Lisinopril 5 Mg Tab PO 11/19/24 20:59 HS [facility] Metoprolol Succinate 50 mg 10/21/24 09:00 Metoprolol Succinate (Er) 50 Mg Tab.Er.24h PO 11/20/24 08:59 DAILY [place] Non-Formulary Medication 50 mg 10/20/24 21:00 Flecainide Acetate [Tambocor] PO 11/19/24 20:59 BID [place] Sodium Chloride 12 ml 10/20/24 11:08 Sodium Chloride 0.9% Flush 10 Ml Syringe IV 11/19/24 11:07 Q12HR PRN Line Flush Spironolactone 12.5 mg 10/21/24 09:00 Spironolactone 25 Mg Tab PO 11/20/24 08:59 DAILY [place] Intake and Output 10/19/24 10/20/24 10/20/24 22:59 06:59 14:59 Intake Total 400 235 Balance 400 235 Intake: IV 400 235 Other: # Voids 1 Weight 105.3 kg 10/20/24 06:37 10/20/24 06:37
--- NOTE | 2024-10-20 11:33 | P.EPPROC ---
- EP Procedure Note Electrophysiology Procedure Note: PROCEDURE A. fib ablation, redo. Previous PVI 7 years back DIAGNOSIS Paroxysmal atrial fibrillation, symptomatic, refractory to therapy Sinus pause of 7 seconds on the monitor RESULT No left atrial appendage mass seen on intracardiac echo, preserved LV and RV size and function Successful A. fib ablation/pulmonary vein isolation of all veins using cryo- ablation Complete entrance block in all 4 veins confirmed No evidence for phrenic nerve injury Left atrial roof ablation Left atrial septal ablation Esophageal deflection YES, right-sided esophagus PROCEDURE DETAILS Written informed consent prior to procedure. Patient brought to the EP lab. General anesthesia given. Heparin administered. A city maintained above 300 seconds Both groins prepped and draped per protocol and venous sheaths placed. Esophagus intubated, circa catheter for temperature monitoring an endoscope for possible esophageal deflection. Phrenic nerve monitoring performed. Esophageal temperature monitoring performed. Esophageal deflection performed if circa catheter overlapping with the balloon or circa temperature less than 27.5C Intracardiac echocardiography performed. Pericardium evaluated. Left atrial appendage evaluated. Left atrium evaluated along with pulmonary veins Transseptal catheterization performed under fluoroscopic guidance and intracardiac echo guidance Cryoablation sheath exchanged, balloon catheter along with achieve catheter placed in the left atrium. Pulmonary veins isolated in the following sequence: Left superior pulmonary vein followed by left inferior pulmonary vein, followed by right inferior pulmonary vein and lastly right superior pulmonary vein. Phrenic nerve stimulation along with capture thresholds within the SVC and right superior pulmonary vein to identify the phrenic nerve proximity to the cryo- balloon. Pulmonary veins isolated and confirmed with entrance and exit block. Phrenic nerve integrity confirmed at the end of the procedure Ablation of the left atrial roof performed with sequential lesions from the left superior to the right superior pulmonary veins. Ablation of the electrograms confirmed Ablation of the left atrial septum performed with cannulation of the inferior branch of the right superior vein to achieve ablation of the posterior septum of the left atrium. Ablation of electrograms confirmed Diagnostic catheters for the high right atrium, His bundle, coronary sinus placed. LA and RA pressures recorded RA pressure: LA pressure: Diagnostic EP study with coronary sinus pacing and recording. High-dose Isopril infused Baseline measurements: Sinus cycle length 828 ms, OR interval 185 ms, QRS 131 and QT 487 ms AH 91 and HV interval 48 ms Sinus node recovery x 1252 and 1134 AV node Wenckebach block the baseline state for 170 ms Burst stimulation from the high right atrium, burst stimulation from the co ronary sinus Later extrastimulation from the high right atrium and from the coronary sinus with up to single extrastimuli on high-dose Isopril No SVT induced No atrial fibrillation induced Venous sheaths were removed and hemostasis assured with a closure device. Patient extubated and transferred to recovery PROCEDURES PERFORMED Diagnostic EP study CS pacing and recording Left and right transseptal catheterization Catheter the mapping of the tachycardia Intracardiac echocardiography Pulmonary vein isolation with transseptal and comprehensive EPS, [id number] Drug infusion, +[id number] Left atrial roof line, +[id number] Linear ablation, left atrium, +[id number]
[2024-10-20] MEDS: ACETAMINOPHEN IV (For NPO) 1,000 MG in EMPTY BAG 1 BAG IVPB ONE (13:18)
[2024-10-20] MEDS: ACETAMINOPHEN TAB 325 MG TAB PO PRN (18:14)
[2024-10-20] MEDS: lisinopriL 5 MG TAB PO SCH (20:16)
[2024-10-20] MEDS: FLUoxetine HCL 20 MG CAP PO SCH (20:34)
[2024-10-20] MEDS: APIXABAN 5 MG TAB PO SCH (20:34)
[2024-10-20] MEDS: FLECAINIDE 50 MG TAB PO SCH (20:35)
[2024-10-21] MEDS: SODIUM CHLORIDE 0.9% 500 ML 500 ML IV ONE (07:50)
[2024-10-21] MEDS: LIDOCAINE 1% INJ 10MG/ML (20 ML MDV) SQ ONE (08:07)
--- NOTE | 2024-10-21 08:37 | P.DS ---
Providers Attending physician: Gage Hester Primary care physician: Flavio Durant [facility] Course: Patient is doing well. She has no chest discomfort dizziness lightheadedness or palpitations She has been walking around in the room. On examination blood pressure is 125/58 mmHg pulse rate is in the 60s and 70s sinus mechanism afebrile Breath sounds are clear Heart sounds S1-S2 normal Impression Paroxysmal atrial fibrillation, status post redo A-fib ablation with PVI left atrial septal ablation and left atrial roof ablation Today we implanted a loop monitor since she also demonstrated a 7-second sinus arrest quite suddenly Sick sinus syndrome Plan Discharge home on oral anticoagulation and reduced dose of flecainide 50 mg twice daily and Toprol-XL 50 mg p.o. daily Subsequently in about 6 weeks or so I will back off from flecainide as well as beta-natan dose and follow-up for any further evidence for sick sinus syndrome Plan - Discharge Summary Discharge Rx Participant: No New Discharge Prescriptions: New Flecainide [Tambocor] 50 mg PO Q12HR #180 tablet Discontinued Flecainide Acetate [Tambocor] 100 mg PO BID No Action FLUoxetine HCL [PROzac] 20 mg PO HS Spironolactone [Aldactone] 12.5 mg PO DAILY lisinopriL [Zestril] 5 mg PO HS Levalbuterol Nebulized [Xopenex Nebulized] 1 applic INHALATION QID PRN PRN Reason: asthma Levalbuterol Hfa Inhaler [Xopenex Hfa Inhaler] 2 puff INHALATION QID PRN PRN Reason: asthma Metoprolol Succinate [Toprol XL] 50 mg PO DAILY Aspirin/Acetaminophen/Caffeine [Excedrin Migraine Caplet] 1 each PO DAILY PRN PRN Reason: Headache Fluticasone Nasal Rosalia [Flonase Nasal Rosalia] 1 spray EA NOSTRIL DAILY Cetirizine HCl [Zyrtec] 10 mg PO DAILY Apixaban [Eliquis] 5 mg PO BID Discharge Medication List FLUoxetine HCL [PROzac] 20 mg PO HS 09/14/14 [History] Levalbuterol Hfa Inhaler [Xopenex Hfa Inhaler] 2 puff INHALATION QID PRN [History] Levalbuterol Nebulized [Xopenex Nebulized] 1 applic INHALATION QID PRN 09/14/14 [History] Spironolactone [Aldactone] 12.5 mg PO DAILY 09/14/14 [History] lisinopriL [Zestril] 5 mg PO HS 09/14/14 [History] Aspirin/Acetaminophen/Caffeine [Excedrin Migraine Caplet] 1 each PO DAILY PRN 08/17/16 [History] Metoprolol Succinate [Toprol XL] 50 mg PO DAILY 08/17/16 [History] Fluticasone Nasal Rosalia [Flonase Nasal Rosalia] 1 spray EA NOSTRIL DAILY 12/16/16 [History] Cetirizine HCl [Zyrtec] 10 mg PO DAILY 08/12/18 [History] Apixaban [Eliquis] 5 mg PO BID 10/15/24 [History] Flecainide [Tambocor] 50 mg PO Q12HR #180 tablet 10/20/24 [Rx] Follow up Appointment(s)/Referral(s): Gage Hester MD [STAFF PHYSICIAN] - 1 Week Activity/Diet/Wound Care/Special Instructions: Post EP study - Ablation instructions 1. Keep access sites dry for 2 days. 2. No heavy lifting or straining for 2 days. 3. Avoid bending the hips repeatedly for 2 days. 4. You may go up and down stairs slowly 5. If you have had an ablation for atrial fibrillation or atrial flutter and are on a blood thinner, do not stop the blood thinner even temporarily for 3 months post ablation Call if the following is noted 1. Bleeding, increasing swelling or pain at the access sites. 2. Increasing chest discomfort, especially upon taking a deep breath. 3. Increasing shortness of breath, at rest or with exertion. 4. Undue cough / phlegm 5. Difficulty or pain while swallowing. 6. Pain or change in color in the extremities. 7. Fever, chills, rigors. 8. Increasing headache or neurologic symptoms. 9. Dizziness, fainting, palpitations For patients who have undergone an A-fib ablation /atrial flutter ablation Strict instruction; do NOT stop anticoagulation (Eliquis/Xarelto/Pradaxa) for the next 2 months temporarily, for any elective, nonurgent surgery. This increases the risk of stroke, post A-fib ablation Reduce flecainide to 50 mg twice daily Discharge Disposition: HOME SELF-CARE
--- NOTE | 2024-10-21 08:38 | P.EPPROC ---
- EP Procedure Note Electrophysiology Procedure Note: Loop monitor implant Primary physicians: Senior Lead Software Engineer: Mir Indication: Sick sinus syndrome sinus arrest Patient was brought to the EP lab in a fasting state. Written informed consent was obtained prior to the procedure. The left pectoral area was prepped and draped per protocol. Intravenous antibiotic was administered preoperatively. A subcutaneous Loop monitor was implanted successfully and the wound was closed per protocol. The device was programmed to detect significant sean- arrhythmic and tachy-arrhythmic events, per protocol. Device and programming details: For sick sinus syndrome and PAF
[2024-10-21] MEDS: SPIRONOLACTONE 25 MG TAB PO SCH (09:22)
[2024-10-21] MEDS: METOPROLOL SUCCINATE (ER) 50 MG TAB.ER.24H PO SCH (09:23)
[2024-10-21 09:45] VITALS: RESP 16; TEMP 98
[2024-10-21 16:09] VITALS: BP 125/70; PULSE 66
== END 2024-10-21 10:54 | disposition home or self-care (01) ==
LOC: CATHEP 05:36 → 6NMEDSUR 10:27 → CATHEP 10-21 10:54
PROVIDERS: ATTEND Internal Medicine Clinical Cardiac Electrophysiology
DX: I48.0 Paroxysmal atrial fibrillation (principal); I49.5 Sick sinus syndrome; J45.909 Unspecified asthma, uncomplicated; M19.90 Unspecified osteoarthritis, unspecified site; I10 Essential (primary) hypertension; Z79.01 Long term (current) use of anticoagulants; Z79.899 Other long term (current) drug therapy; Z90.89 Acquired absence of other organs; Z98.890 Other specified postprocedural states
CPT/HCPCS: 93623; 93656; 93657; 86900; 86901; 80053; 84443; 85025; 86850; C1894; C1769 ×3; C1760 ×3; C1730 ×2; C1759; C1893; C1733; J1644 ×2; J0690; J2003 ×2; J0131; Q9967; 33285

== ENCOUNTER → 2025-03-12 | Outpatient (CLI) | payer BC ==
--- NOTE | 2025-03-12 08:01 | MM ---
Reason for Exam: Screening (asymptomatic). Last mammogram was performed 5 year(s) and 7 month(s) ago. Patient History: Menarche at age 11. First Full-Term at age 27. Postmenopausal. Mother had breast cancer, age 70. Risk Values: Alethea 5 year model risk: 2.8%. NCI Lifetime model risk: 13.9%. Prior Study Comparison: 08/20/2014 Bilateral Screening Mammogram, [facility]. 08/31/2014 Left Diagnostic Mammogram, [facility]. 08/22/2019 Bilateral Screening Mammogram, [facility]. Tissue Density: The breasts are heterogeneously dense, which may obscure small masses. Findings: Analyzed By CAD. No suspicious calcifications. Nodular density in the upper margin rests approximately 7.4 cm from the nipple. Overall Assessment: Incomplete: need additional imaging evaluation, BI-RAD 0 Management: Special View Mammogram of the right breast. . Patient should continue monthly self-breast exams. A clinical breast exam by your physician is recommended on an annual basis. This exam should not preclude additional follow-up of suspicious palpable abnormalities. Note on Alethea scores and lifetime risk: 1. A Alethea score greater than 3% is considered moderate risk. If this is the case, consider specialist referral to assess eligibility for a risk reducing agent. 2. If overall lifetime risk for the development of breast cancer is 20% or higher, the patient may qualify for future screening with alternating mammogram and breast MRI. [facility], , 03/12/2025 7:59 AM. Electronically signed and approved by: José Villatoro M.D. Radiologis
--- NOTE | 2025-03-12 08:25 | BD ---
EXAMINATION TYPE: Axial Bone Density DATE OF EXAM: 03/12/2025 CLINICAL HISTORY: 59 years old Female. ICD-10 CODE: M85.851 OTH DISRD OF BONE DENSITY , Additional History: Height: 61.2 Weight: 230 FRAX RISK QUESTIONS: Secondary Osteoporosis: 3. Menopause before 45: at 44 RISK FACTORS HISTORY OF: MEDICATIONS: EXAM MEASUREMENTS: Bone mineral densitometry was performed using the [employer] System. Bone mineral density as measured about the Lumbar spine is: ----- L1-L4(G/cm2): 1.379 T Score Values are as follows: ----- L1: 1.0 ----- L2: 0.9 ----- L3: 2.2 ----- L4: 2.3 ----- L1-L4: 1.7 Z Score Values are as follows: ----- L1: 1.0 ----- L2: 0.9 ----- L3: 2.2 ----- L4: 2.4 ----- L1-L4: 1.7 First dexa at [facility] Bone mineral density about the R hip (g/cm2): 0.989 Bone mineral density about the L hip (g/cm2): 1.018 T Score values are as follows: -----R Neck: -1.7 -----L Neck: -1.6 -----R Total: -0.1 -----L Total: 0.1 Z Score values are as follows: -----R Neck: -1.2 -----L Neck: -1.1 -----R Total: -0.1 -----L Total: 0.2 First dexa at [facility] FRAX%s: The graph provided illustrates a 7.4% chance for a major osteoporotic fx and a 0.7% chance fo r the hips probability for fx in 10 years time. IMPRESSION: Osteopenia (T Score between -2.5 and -1). There is slightly increased risk of fracture and the patient may be considered for treatment. Re-Screen 2-5 years. NOTE: T-SCORE=SD OF THE YOUNG ADULT MEAN. [facility], , 03/12/2025 8:23 AM
== END | disposition home or self-care (01) ==
LOC: RADMAMWWP 06:47
PROVIDERS: ATTEND Internal Medicine
DX: Z12.31 Encounter for screening mammogram for malignant neoplasm of breast (principal); R92.333 Mammographic heterogeneous density, bilateral breasts; M85.851 Other specified disorders of bone density and structure, right thigh; Z78.0 Asymptomatic menopausal state; Z80.3 Family history of malignant neoplasm of breast
CPT/HCPCS: 77063; 77067; 77080

== ENCOUNTER → 2025-03-17 | Outpatient (CLI) | payer BC ==
--- NOTE | 2025-03-17 08:19 | MM ---
Reason for Exam: Additional evaluation requested from abnormal screening. Last screening mammogram was performed less than 1 month ago. Patient History: Menarche at age 11. First Full-Term at age 27. Postmenopausal. Patient has history of breast feeding. Mother had breast cancer, age 70. Risk Values: Alethea 5 year model risk: 2.8%. NCI Lifetime model risk: 13.9%. Prior Study Comparison: 08/20/2014 Bilateral Screening Mammogram, [facility]. 08/22/2019 Bilateral Screening Mammogram, [facility]. 03/12/2025 Bilateral MG 3D screening mammo w/cad, [facility]. Tissue Density: Right: The breasts are heterogeneously dense, which may obscure small masses. Findings: Analyzed By CAD. The questioned superior symmetric density disperses on additional views compatible with superimposition shadow. No significant change from prior exams. Overall Assessment: Benign, BI-RAD 2 Management: Screening Mammogram of both breasts in 1 year. Results were given to the patient verbally at the time of exam. Patient should continue monthly self-breast exams. A clinical breast exam by your physician is recommended on an annual basis. This exam should not preclude additional follow-up of suspicious palpable abnormalities. Note on Alethea scores and lifetime risk: 1. A Alethea score greater than 3% is considered moderate risk. If this is the case, consider specialist referral to assess eligibility for a risk reducing agent. 2. If overall lifetime risk for the development of breast cancer is 20% or higher, the patient may qualify for future screening with alternating mammogram and breast MRI. [facility], , 03/17/2025 8:15 AM. Electronically signed and approved by: Janel Abraham M.D. Radiologist
== END | disposition home or self-care (01) ==
LOC: RADMAMWWP 07:49
PROVIDERS: ATTEND Internal Medicine
DX: R92.8 Other abnormal and inconclusive findings on diagnostic imaging of breast (principal); R92.331 Mammographic heterogeneous density, right breast; Z78.0 Asymptomatic menopausal state; Z80.3 Family history of malignant neoplasm of breast
CPT/HCPCS: 77061; 77065

== ENCOUNTER 2025-04-15 09:17 | Day surgery (SDC) | payer BC ==
[2025-04-15 09:50] LABS: Glucose,Whole Blood 104 mg/dL (70-110)
[2025-04-15] MEDS: LACTATED RINGERS 1,000 ML IV SCH (09:50)
[2025-04-15] MEDS: IV FLUID CONTINUATION 1,000 ML IV ONE (09:51)
[2025-04-15 09:54] VITALS: TEMP 97.3
[2025-04-15] MEDS ORDERED: PROPOFOL 10 MG/ML 20 ML VIAL IV ONE (10:22)
--- NOTE | 2025-04-15 10:42 | P.PCN ---
Date of Procedure: 04/15/25 Procedure(s) Performed: BRIEF HISTORY: Patient is a 59-year-old pleasant white female scheduled for an elective colonoscopy as a part of screening for colon cancer. PROCEDURE PERFORMED: Colonoscopy with biopsy and snare polypectomy. PREOPERATIVE DIAGNOSIS: Screening for colon cancer. IV sedation per Anesthesia. PROCEDURE: After informed consent was obtained, the patient, was brought into the endoscopy unit. IV sedation was administered by Anesthesia under continuous monitoring. Digital rectal examination was normal. Initially the Olympus CF-160 flexible video colonoscope was then inserted in the rectum, gradually advanced into the cecum without any difficulty. Careful examination was performed as the scope was gradually being withdrawn. Ileocecal valve and the appendiceal orifice were visualized and appeared normal. Prep was excellent. Mucosa of the cecum, had 3 mm polyp that was removed by cold biopsy. Rest of ascending colon, transverse colon, descending colon, normal. In the sigmoid colon there was a 5 mm polyp removed by cold snare polypectomy. Scattered diverticulosis seen. Sigmoid colon, and rectum appeared normal. Retroflexion was performed in the rectum and no lesions were seen. The patient tolerated the procedure well. IMPRESSION: 3 mm cecal polyp status post cold biopsy 6 mm sigmoid colon polyp status post cold snare polypectomy Scattered sigmoid diverticulosis RECOMMENDATIONS: Findings of this examination were discussed with the patient as well as the family. She was advised to follow-up with the biopsy results. If the biopsy was adenoma she can have a repeat colonoscopy in 5 years.
[2025-04-15 10:58] VITALS: RESP 12
[2025-04-15 11:01] VITALS: BP 119/53; PULSE 61
== END 2025-04-15 11:21 | disposition home or self-care (01) ==
LOC: ORWHC2ENDO 09:17
PROVIDERS: ATTEND Internal Medicine Gastroenterology
DX: Z12.11 Encounter for screening for malignant neoplasm of colon (principal); K63.5 Polyp of colon; K57.30 Diverticulosis of large intestine without perforation or abscess without bleeding; I48.91 Unspecified atrial fibrillation; I10 Essential (primary) hypertension; E11.9 Type 2 diabetes mellitus without complications; E78.5 Hyperlipidemia, unspecified; I49.3 Ventricular premature depolarization; J45.909 Unspecified asthma, uncomplicated; F32.A Depression, unspecified; Z79.01 Long term (current) use of anticoagulants; Z79.84 Long term (current) use of oral hypoglycemic drugs; Z79.899 Other long term (current) drug therapy; Z91.012 Allergy to eggs
CPT/HCPCS: 88305; 45380; 45385; J2704